=== PATIENT | male | born 1985 | race Caucasian/White ===

== ENCOUNTER 2018-03-18 21:11 | Emergency (ER) | payer OTHER ==
[~2018-03-18] VITALS: Ht 177.8 cm; Wt 131.5 kg
[2018-03-18 21:25] VITALS: BP 109/78
--- NOTE | 2018-03-18 21:28 | NUR ---
PT.AMBULATED TO [facility]
[2018-03-18] MEDS ORDERED: KETOROLAC 60 MG/2 ML VIAL IM ONE (23:10)
--- NOTE | 2018-03-18 23:50 | NUR ---
ASSUMED CARE OF PT AT THIS TIME. C/O SORETHROAT AND BI-LATERAL EYE DRAINAGE X 3 DAYS. AAOX4 WITH EVEN AND STEADY GAIT; LUNGS CLEAR BL; HR EVEN AND REGULAR;PT DENIE SOB OR COUGH AT THIS TIME; PATIENT STATES PAIN OF 8/10; VSS; ER MD MADE AWARE OF PT STATUS. WILL CONTINUE TO MONITOR.
[2018-03-19 00:50] VITALS: BP 116/74
--- NOTE | 2018-03-19 00:50 | NUR ---
Patient discharged with v/s stable. Written and verbal after care instructions given and explained. Patient alert, oriented and verbalized understanding of instructions. Ambulatory with steady gait. All questions addressed prior to discharge. ID band removed. Patient advised to follow up with PMD. Rx of NAPROXEN AND POLYTRIM given. Patient educated on indication of medication including possible reaction and side effects. Opportunity to ask questions provided and answered.
== END 2018-03-19 00:50 | disposition home or self-care (01) ==
LOC: MED 21:11
DX: J02.8 Acute pharyngitis due to other specified organisms (principal); H10.9 Unspecified conjunctivitis; J45.909 Unspecified asthma, uncomplicated; I10 Essential (primary) hypertension
CPT/HCPCS: 87081; 96372; 99284; J1885

== ENCOUNTER 2018-04-27 16:55 | Emergency (ER) | payer OTHER ==
[~2018-04-27] VITALS: Ht 177.8 cm; Wt 131.5 kg
[2018-04-27 17:20] VITALS: BP 124/82
--- NOTE | 2018-04-27 17:25 | NUR ---
PT AMBULATES WITH STEADY GAIT TO BED 2
--- NOTE | 2018-04-27 17:30 | NUR ---
32M BIB SELF WITH C/O 08/11 "SHARP/ACID" EPIGASTRIC/LEFT UPPER ABDOMINAL PAIN SINCE THIS MORNING AFTER EATING BREAKFAST. PT ALSO REPORTS N/V CLEAR WATERY LIQUID, APPROX 6 EPISODES. DENIES DIARRHEA. REPORTS PAIN WORSENED AFTER EATING. PT DENIES ANY FEVERS OR URINARY COMPLAINTS. PT IS AOX4 TO PLACE, PERSON, PLACE, AND SITUATION. RR ARE EVEN AND UNLABORED. MUCOUS MEMBRANES MOIST. PATIENT CHANGED INTO GOWN. VSS. ALL NEEDS MET AT THIS TIME. WILL CONTINUE TO MONITOR.
--- NOTE | 2018-04-27 18:16 | NUR ---
ER MD CALLE BY BEDSIDE EXAMINING PATIENT
[2018-04-27] MEDS ORDERED: METOCLOPRAMIDE 10 MG/2 ML INJ VIAL IVP ONE (18:20)
[2018-04-27] MEDS ORDERED: KETOROLAC 30 MG/ML VIAL IVP ONE (18:20)
[2018-04-27] MEDS ORDERED: diphenhydrAMINE 50 MG/ML VIAL IVP ONE (18:20)
[2018-04-27 18:47] LABS: BASOPHILS # (AUTO) 0.1 K/uL (0.00-0.22); BASOPHILS % (AUTO) 0.4 % (0.0-2.0); EOSINOPHILS # (AUTO) 0.1 K/uL (0-0.4); EOSINOPHILS % (AUTO) 0.4 % (0.0-4.0); HEMATOCRIT 45.4 % (36-52); HEMOGLOBIN 15.4 g/dL (12.0-18.0); LYMPHOCYTES # (AUTO) 2.2 K/uL (2.0-11.5); LYMPHOCYTES % (AUTO) 18.1 % (20.5-51.1); MEAN CORPUSCULAR HEMOGLOBIN 29 pg (27-31); MEAN CORPUSCULAR HGB CONC 34 g/dL (33-37); MEAN CORPUSCULAR VOLUME 86.9 fL (80-94); MONOCYTES # (AUTO) 0.5 K/uL (0.8-1.0); MONOCYTES % (AUTO) 4.4 % (1.7-9.3); NEUTROPHILS # (AUTO) 9.2 K/uL (1.8-7.7); NEUTROPHILS % (AUTO) 76.7 % (42.2-75.2); PLATELET COUNT (AUTO) 247 K/uL (140-450); RED BLOOD CELL COUNT(AUTO) 5.22 MIL/uL (4.20-6.10); RED CELL DISTRIBUTION WIDTH 13.1 % (11.6-13.7)
[2018-04-27 18:52] LABS: APPEARANCE,URINE CLEAR (CLEAR); BILIRUBIN,URINE NEGATIVE (NEGATIVE); BLOOD, URINE NEGATIVE (NEGATIVE); COLOR,URINE YELLOW (YELLOW); LEUKOCYTE ESTERASE ,URINE NEGATIVE (NEGATIVE); NITRITE, URINE NEGATIVE (NEGATIVE); UGLUCOSE NEGATIVE (NEGATIVE)
[2018-04-27 18:55] LABS: ANION GAP 9.6 (8-16); CARBON DIOXIDE 28.4 mmol/L (21-32); CREATININE 0.9 mg/dL (0.7-1.3)
--- NOTE | 2018-04-27 19:00 | NUR ---
ULTRASOUND BY BEDSIDE
--- NOTE | 2018-04-27 19:00 | NUR ---
REPORT RECV'D FROM HALLE PANDEY
[2018-04-27 19:03] LABS: ALBUMIN 3.9 g/dL (3.4-5.0); TOTAL BILIRUBIN 0.5 mg/dL (0.0-1.0)
[2018-04-27] MEDS ORDERED: LACTULOSE 20 GM/30 ML UDC PO ONE (20:20)
[2018-04-27] MEDS ORDERED: LACTULOSE 20 GM/30 ML UDC ONE (20:32)
[2018-04-27 20:35] VITALS: BP 138/78
== END 2018-04-27 20:35 | disposition home or self-care (01) ==
LOC: MED 16:55
DX: K59.00 Constipation, unspecified (principal); J45.909 Unspecified asthma, uncomplicated; I10 Essential (primary) hypertension
CPT/HCPCS: 36415; 76705; 80053; 81003; 83690; 85025; 96374; 96375; 99285; J1200; J1885; J2765; Q0092